=== PATIENT | female | born 1960 | race Caucasian/White ===

== ENCOUNTER → 2017-03-26 | Outpatient (CLI) | payer OTHER ==
[~2017-03-26] MED LIST: AMBIEN10 M1 PO; ANAPROX DS550 MG PO; ATIVAN1 MG PO; CIPRO500 MG PO; CIPROFLOXACIN500 MG PO; COMPAZINE10 MG PO; DULERA1 AR2 IH; LEVOFLOXACIN500 MG PO; LOMOTIL 0.025 M1 TA1 PO; MACROBID100 M1 PO; MOTRIN400 MG PO; MOTRIN800 MG PO; PHENERGAN25 M3 PO; PYRIDIUM100 MG PO; PYRIDIUM200 M1 PO; PYRIDIUM200 MG PO; SINGULAIR10 MG PO; SYNTHROID0.125 MG PO; TYLENOL W/CODEI1 TA2 PO; VALIUM10 MG; VIIBRYD40; ZOFRAN ODT4 MG SL; Zofran4 MG PO
== END | disposition home or self-care (01) ==
LOC: RAD 11:09
DX: J98.4 Other disorders of lung (principal)

== ENCOUNTER → 2017-04-04 | Outpatient (CLI) | payer OTHER | END | disposition home or self-care (01) | LOC: RAD 09:20 | DX: J18.9 Pneumonia, unspecified organism (principal); J45.909 Unspecified asthma, uncomplicated ==

== ENCOUNTER → 2017-06-04 | Outpatient (CLI) | payer OTHER | END | disposition home or self-care (01) | LOC: RAD 19:42 | DX: M25.562 Pain in left knee (principal); M25.561 Pain in right knee ==

== ENCOUNTER 2017-09-02 22:20 | Emergency (ER) | payer OTHER ==
[~2017-09-02] VITALS: Ht 170.1 cm; Wt 77.1 kg
[~2017-09-02 22:20] MED LIST changes: +SYNTHROID,LEV112 MCG PO; -SYNTHROID0.125 MG PO
[2017-09-02] MEDS ORDERED: VITAMIN D CAP 500 (22:42)
[2017-09-02 22:44] LABS: BILIRUBIN NEGATIVE (NEGATIVE); BLOOD NEGATIVE (NEGATIVE); CLARITY CLEAR (CLEAR); COLOR YELLOW (YELLOW); GLUCOSE NEGATIVE (NEGATIVE); KETONE NEGATIVE (NEGATIVE); LEUKO ESTERASE NEGATIVE (NEGATIVE); NITRITE NEGATIVE (NEGATIVE); PH 6.5 (5.0-9.0); SPECIFIC GRAVITY <= 1.005 (1.005-1.030); UROBILINOGEN 0.2 E.U./dl (0.2-1.0)
[2017-09-02 22:49] LABS: BACTERIA TRACE; EPITHELIAL CELLS 0-2; RBC 0-2 rbc/hpf (0-2); WBC 0-2 wbc/hpf (0-5)
[2017-09-02 23:57] LABS: BASO % 0.4 % (0.0-1.0); EOS # 0.4 10*3/uL (0.0-0.4); EOS % 4.4 % (1.0-4.0); HEMOGLOBIN 13.9 g/dl (12.0-16.0); LYMPH # 1.8 10*3/uL (1.3-4.4); LYMPH % 20.2 % (27.0-41.0); MEAN CELL VOLUME 89.9 fl (81.0-99.0); MEAN CORPUSCULAR HGB 29.8 pg (27.0-31.0); MEAN CORPUSCULAR HGB CONC 33.1 g/dl (33.0-37.0); MONO # 0.6 10*3/uL (0.1-1.0); MONO % 6.7 % (3.0-9.0); NEUT # 6.1 10*3/uL (2.3-7.9); PLATELET COUNT AUTOMATED 247 10*3/uL (130-400); RED BLOOD COUNT 4.67 10*6/uL (4.10-5.10); RED CELL DISTRI WIDTH 13.2 % (0-14.5)
[2017-09-03 00:15] LABS: ALBUMIN 3.7 gm/dl (3.1-4.5); ALKALINE PHOSPHATASE 83 U/L (45-117); BUN 15 mg/dl (7-24); CHLORIDE 110 mmol/L (98-107); CREATININE 0.92 mg/dL (0.55-1.02); LIPASE 169 U/L (73-393); POTASSIUM 4.1 mmol/L (3.5-5.1); SGOT/AST 20 IU/L (3-35); SGPT/ALT 26 U/L (12-78); SODIUM 145 mmol/L (136-145); TOTAL PROTEIN 6.8 gm/dL (6.4-8.2)
[2017-09-03] MEDS ORDERED: SEPTDS PO (00:19)
[2017-09-03] MEDS ORDERED: MACROBID100 M1 PO (00:22)
[2017-09-03 00:30] VITALS: BP 130/98
[2017-09-04] MEDS ORDERED: LEVOXYL112 MCG PO (19:16)
[2017-09-04] MEDS ORDERED: PROAIR HFA8.5 GM INH (20:34)
[2017-09-04] MEDS ORDERED: SYNTHROID,LEV112 MCG PO (21:00)
[2017-09-04] MEDS ORDERED: VITAMIN D-32000 UNI1 PO (21:01)
[2017-09-04] MEDS ORDERED: VITAMIN B1250 MCG PO (21:01)
[2017-09-04] MEDS ORDERED: PROBIOTIC250 MG PO (21:02)
== END 2017-09-03 00:37 | disposition home or self-care (01) ==
LOC: ED 22:20
PROVIDERS: Nurse Practitioner Family
DX: A08.4 Viral intestinal infection, unspecified (principal); R30.0 Dysuria; Z79.899 Other long term (current) drug therapy; Z90.710 Acquired absence of both cervix and uterus

== ENCOUNTER 2017-09-04 11:59 | Inpatient (IN) | payer OTHER ==
[~2017-09-04] VITALS: Ht 170.2 cm; Wt 80.7 kg
--- NOTE | ~2017-09-04 | WRIGHTHP ---
[place], [place] PATIENT HISTORY AND PHYSICAL EXAM NAME: YOGI MARTINEZ [facility] #: [id number] UNIT #: [id number] ROOM: 512 DOCTOR: CRISS ANDINO MD BIRTHDATE: [birth year] DOS: 09/04/2017 HISTORY OF PRESENT ILLNESS: The patient is a 56-year-old female with a past medical history of: 1. Hypothyroidism. 2. History of major depression, recurrent, mild. 3. History of bronchial asthma. 4. History of kidney stone. 5. History of urinary tract infections. 6. History of hysterectomy. The patient presented to [facility] for the second time with nausea, vomiting and diarrhea. The patient was found to be dehydrated and because she had presented for the second time, she was admitted and ruled out for urinary tract infection and then admitted for hydration. After admission, the patient was treated with IV Zofran and her vomiting and diarrhea have resolved and she is starting to tolerate diet. The patient is also being hydrated with IV fluids. The patient is insisting on going home later today because she is feeling much better. No complaints of any shortness of breath. No chest pain. No GI or urinary symptoms otherwise. REVIEW OF SYSTEMS: LUNGS: No increasing shortness of breath or wheezing. GASTROINTESTINAL: Nausea, vomiting and diarrhea at home. CARDIOVASCULAR: No palpitations or chest pains. FAMILY HISTORY: Noncontributory. SOCIAL HISTORY: The patient lives at home. Denies smoking cigarettes, alcohol and drug abuse. HOME MEDICATIONS: The patient takes Singulair, levothyroxine and Ambien. PHYSICAL EXAMINATION: GENERAL: Alert and oriented x 3, in no visible distress. HEENT AND NECK: Extraocular movements are intact. Sclerae are anicteric. Oral mucosa is moist and clean. No obvious facial weakness. Neck is supple without any lymphadenopathy. No thyromegaly. No JVD. No carotid arterial bruits. LUNGS: Clear to auscultation. No wheezing. No rhonchi. CARDIOVASCULAR SYSTEM: Heart rate is regular in rate and rhythm. S1 and S2 normally audible. No significant murmur or any other abnormal cardiac sounds. ABDOMEN: Soft, nontender. No obvious organomegaly. Bowel sounds are present. No obvious herniation. EXTREMITIES: Without significant cyanosis or edema. Warm to touch. CENTRAL NERVOUS SYSTEM: Alert and oriented x 3. Cranial nerves II-XII are intact. Speech is normal. The patient is able to move all extremities. Normal muscle strength. Deep tendon reflexes are equal on both sides. Plantars were downgoing. LABORATORY DATA: Urine cultures growing heavy gram-negative bacilli. Normal [place], [place] PATIENT HISTORY AND PHYSICAL EXAM NAME: YOGI MARTINEZ UNIT #: [id number] ROOM: [facility] DOCTOR: CRISS ANDINO MD BIRTHDATE: [birth year] serum electrolytes. IMPRESSION AND PLAN: 1. The patient's urine culture is growing heavy gram-negative bacilli and she has no known drug allergies, so I will treat her with Augmentin. 2. Nausea, vomiting, diarrhea, apparently viral gastroenteritis and also related to urinary tract infection has resolved and the patient being hydrated with intravenous fluids. If the patient continues to do well, she can be discharged in the evening because she is insisting to go home and she is to follow up with Dr. Yamil Bustos, her PCP this week. 3. Hypothyroidism, for which her thyroid supplements have been continued. 4. Chronic primary insomnia, treated and controlled with Ambien as needed. 5. History of bronchial asthma, for which she takes Singulair, which has been continued. CRISS ANDINO MD CM:HISPHYS:PATIENT HISTORY AND PHYSICAL EXAMINATION [id number] CRISS ANDINO MD 09/05/17 1213 interface
[~2017-09-04 11:59] MED LIST changes: +SEPTDS PO; +VITAMIN D CAP 500
[2017-09-04 12:09] VITALS: BP 124/68; BP 124/8
[2017-09-04 12:42] LABS: BASO % 0.2 % (0.0-1.0); EOS # 0.2 10*3/uL (0.0-0.4); EOS % 1.6 % (1.0-4.0); HEMATOCRIT 47.6 % (37.0-47.0); HEMOGLOBIN 16.1 g/dl (12.0-16.0); LYMPH # 0.5 10*3/uL (1.3-4.4); LYMPH % 4.2 % (27.0-41.0); MEAN CELL VOLUME 87.8 fl (81.0-99.0); MEAN CORPUSCULAR HGB 29.7 pg (27.0-31.0); MEAN CORPUSCULAR HGB CONC 33.8 g/dl (33.0-37.0); MEAN PLATELET VOLUME 8.9 fl (9.6-12.3); MONO # 0.5 10*3/uL (0.1-1.0); MONO % 4.2 % (3.0-9.0); NEUT # 9.7 10*3/uL (2.3-7.9); NEUT % 89.4 % (47.0-73.0); PLATELET COUNT AUTOMATED 268 10*3/uL (130-400); RED BLOOD COUNT 5.42 10*6/uL (4.10-5.10); RED CELL DISTRI WIDTH 13.1 % (0-14.5); WHITE BLOOD COUNT 10.8 10*3/uL (4.8-10.8)
[2017-09-04 12:46] LABS: BILIRUBIN 1+ (NEGATIVE); BLOOD 1+ (NEGATIVE); CLARITY SL CLOUDY (CLEAR); COLOR YELLOW (YELLOW); GLUCOSE NEGATIVE (NEGATIVE); KETONE 3+ (NEGATIVE); LEUKO ESTERASE NEGATIVE (NEGATIVE); NITRITE NEGATIVE (NEGATIVE); SPECIFIC GRAVITY 1.015 (1.005-1.030); UROBILINOGEN 0.2 E.U./dl (0.2-1.0)
--- NOTE | 2017-09-04 12:53 | NUR ---
PT POSITIONED FOR COMFORT SAFETY PRECAUTIONS INTACT AND CALL LIGHT WITHIN REACH.
[2017-09-04 12:55] LABS: BACTERIA 1+; MUCOUS 2+; WBC 0-2 wbc/hpf (0-5)
[2017-09-04 13:02] LABS: ALBUMIN 4.2 gm/dl (3.1-4.5); ALKALINE PHOSPHATASE 99 U/L (45-117); BUN 19 mg/dl (7-24); CHLORIDE 105 mmol/L (98-107); CREATININE 0.88 mg/dL (0.55-1.02); LIPASE 119 U/L (73-393); POTASSIUM 4.1 mmol/L (3.5-5.1); SGOT/AST 20 IU/L (3-35); SGPT/ALT 25 U/L (12-78); SODIUM 140 mmol/L (136-145); TOTAL PROTEIN 7.9 gm/dL (6.4-8.2)
--- NOTE | 2017-09-04 13:32 | NUR ---
NO ADDITIONAL EMESIS/WRETCHING NOTED SINCE MEDICATION ADMINISTRATION BUT NAUSEA REMAINS PER PT,DR ZALDIVAR NOTIFIED.
--- NOTE | 2017-09-04 13:55 | NUR ---
MEDICATION ADMINISTRATION PER DELLA WILLINGHAM INFORMATION BROKER-RN
--- NOTE | 2017-09-04 14:46 | NUR ---
PT AMBULATING W/O DIFFICULTY TO/FROM EXAM ROOM TO RESTROOM WITH MILD NAUSEA REMAINING, PT DENIES FLUIDS @ THIS TIME FOR PO CHALLENGE UNTIL "FEELING NOT SO WOOZY", PT POSITIONED FOR COMFORT AND NO ACUTE DISTRESS NOTED.
--- NOTE | 2017-09-04 14:58 | NUR ---
PT WITH CONTINUED NAUSEA AND WRETCHING NOTED @ THIS TIME,PT PROVIDED EMESIS BAG AND POSITIONED FOR COMFORT.
--- NOTE | 2017-09-04 15:06 | NUR ---
DR ZALDIVAR NOTIFIED OF PT'S CONTINUED COMPLAINT.
--- NOTE | 2017-09-04 15:12 | NUR ---
PT WITH EMESIS OF YELLOW FLUIDS WHILE IN RESTROOM.
[2017-09-04 15:18] VITALS: BP 132/69
--- NOTE | 2017-09-04 16:33 | NUR ---
PT STATING NAUSEA RESOLVED BUT H/A REMAINS @ A 5 ON 1-10 SCALE LOCATED TO OCCIPITAL HEAD/NAPE OF NECK,FAMILY @ BEDSIDE AND SAFETY PRECAUTIONS INTACT.
[2017-09-04 16:47] VITALS: BP 122/65
--- NOTE | 2017-09-04 17:19 | NUR ---
A 56, admitted to 5E, under the services of Dr. THU WALKER,CRISS Morales with a diagnosis of INTRACTABLE NAUSEA AND VOMITING, DEHYDRATION. Chief complaint is NAUSEA/VOMITING. Patient arrived via CART from ER. Monitor applied. Initial assessment completed. Vital signs taken and recorded. DR. THU WALKER,CRISS Morales notified of admission to the unit. Orders received. See assessment for past medical history, medications and allergies. Patient and/or family oriented to unit. [facility] visitation policy reviewed. Clothing/patient valuable form completed. KAY ALVAREZ
--- NOTE | 2017-09-04 18:44 | NUR ---
SPOKE WITH DR. ANDINO REGARDING ADMISSION ORDERS. NEW ORDERS RECIEVED.
[2017-09-04] MEDS ORDERED: LEVOXYL112 MCG PO (19:16)
[2017-09-04 20:00] VITALS: BP 120/67
[2017-09-04] MEDS ORDERED: PROAIR HFA8.5 GM INH (20:34)
--- NOTE | 2017-09-04 20:57 | NUR ---
IV ZOFRAN ADMINISTERED SLOWLY PER PRN ORDER FOR C/O NAUSEA. WILL MONITOR EFFECTIVENESS. CALL LIGHT LEFT IN REACH.
[2017-09-04] MEDS ORDERED: SYNTHROID,LEV112 MCG PO (21:00)
[2017-09-04] MEDS ORDERED: VITAMIN B1250 MCG PO (21:01)
[2017-09-04] MEDS ORDERED: VITAMIN D-32000 UNI1 PO (21:01)
[2017-09-04] MEDS ORDERED: PROBIOTIC250 MG PO (21:02)
--- NOTE | 2017-09-04 21:06 | NUR ---
MED REC UP TO DATE PER [facility] AND PATIENT RECALL. SPOKE TO ABOUT PATIENT'S HOME MEDICATIONS AND REQUESTS FOR ANTI-ANXIETY MEDICATION. STATES HE WILL PUT IN ORDERS.
--- NOTE | 2017-09-04 21:53 | NUR ---
PO DEMETRIS ADMINISTERED AT THIS TIME PER ORDER. WILL MONITOR EFFECTIVENESS. CALL LIGHT LEFT WITHIN REACH.
[2017-09-05] VITALS: BP 111/56
--- NOTE | 2017-09-05 00:04 | NUR ---
PATIENT ASLEEP IN BED AT THIS TIME. EARLIER MEDICATION APPEARS EFFECTIVE. WILL CONTINUE TO MONITOR. CALL LIGHT LEFT IN REACH.
[2017-09-05 06:18] LABS: BASO % 0.6 % (0.0-1.0); EOS # 0.1 10*3/uL (0.0-0.4); EOS % 1.6 % (1.0-4.0); LYMPH # 0.6 10*3/uL (1.3-4.4); LYMPH % 11.5 % (27.0-41.0); MEAN CELL VOLUME 89.5 fl (81.0-99.0); MEAN CORPUSCULAR HGB 29.8 pg (27.0-31.0); MEAN CORPUSCULAR HGB CONC 33.3 g/dl (33.0-37.0); MEAN PLATELET VOLUME 9.3 fl (9.6-12.3); MONO # 0.5 10*3/uL (0.1-1.0); MONO % 9.7 % (3.0-9.0); NEUT # 3.9 10*3/uL (2.3-7.9); NEUT % 76.2 % (47.0-73.0); PLATELET COUNT AUTOMATED 207 10*3/uL (130-400); RED BLOOD COUNT 4.57 10*6/uL (4.10-5.10); RED CELL DISTRI WIDTH 13.1 % (0-14.5); WHITE BLOOD COUNT 5.1 10*3/uL (4.8-10.8)
[2017-09-05 06:40] LABS: HEMATOCRIT 40.9 % (37.0-47.0); HEMOGLOBIN 13.6 g/dl (12.0-16.0)
[2017-09-05 06:42] LABS: CHLORIDE 107 mmol/L (98-107); POTASSIUM 3.7 mmol/L (3.5-5.1); SODIUM 141 mmol/L (136-145)
[2017-09-05 06:49] LABS: BUN 19 mg/dl (7-24); CREATININE 0.91 mg/dL (0.55-1.02)
[2017-09-05 08:00] VITALS: BP 117/61
--- NOTE | 2017-09-05 09:00 | NUR ---
Telecasting Technician in to talk to patient. Patient states lives at home with daughter. There are few steps in the home. Physician: jonathan Pharmacy: [facility] health services: none Patient's level of ADLs: INDEPENDENT Patient has working utilities: all working DME: none Follow-up physician's appointment after d/c: will be made by hospitalist nurse director upon discharge Does patient want to access PORTAL?: no Discharge plan discussed with patient, patient lives at home with daughter, she is independent in adls and ambulation, drives, works, patient states she will be going back home when able and denies any home needs. PHILL PELAYO
[2017-09-05] MEDS ORDERED: AUGMENTIN 875-875 MG PO (11:05)
--- NOTE | 2017-09-05 12:56 | NUR ---
Discharge instructions reviewed with patient/family. Patient receptive and verbalizes understanding. Follow-up care arranged. Written instructions given to patient/family. DELLA SOTO
== END 2017-09-05 12:56 | disposition home or self-care (01) | DRG 641 ==
LOC: ED 11:59 → EDHOLD 15:37 → 5E 15:37
PROVIDERS: Emergency Medicine; ADMIT Internal Medicine
DX: E86.0 Dehydration (principal); F51.04 Psychophysiologic insomnia; F33.0 Major depressive disorder, recurrent, mild; E03.9 Hypothyroidism, unspecified; J45.909 Unspecified asthma, uncomplicated; Z79.899 Other long term (current) drug therapy; Z90.49 Acquired absence of other specified parts of digestive tract

== ENCOUNTER 2019-11-07 11:23 | Emergency (ER) | payer OTHER ==
[~2019-11-07] VITALS: Ht 168.9 cm; Wt 83.9 kg
[~2019-11-07 11:23] MED LIST changes: +AUGMENTIN 875-875 MG PO; +LEVOXYL112 MCG PO; +PROAIR HFA8.5 GM INH; +PROBIOTIC250 MG PO; +VITAMIN B1250 MCG PO; +VITAMIN D-32000 UNI1 PO
[2019-11-07 12:37] LABS: BILIRUBIN NEGATIVE (NEGATIVE); CLARITY SL CLOUDY (CLEAR); COLOR YELLOW (YELLOW); GLUCOSE NEGATIVE (NEGATIVE); KETONE 3+ (NEGATIVE)
[2019-11-07 12:38] LABS: BLOOD 1+ (NEGATIVE); LEUKO ESTERASE NEGATIVE (NEGATIVE); NITRITE NEGATIVE (NEGATIVE); UROBILINOGEN 0.2 E.U./dl (0.2-1.0)
[2019-11-07 12:49] LABS: BACTERIA 2+; MUCOUS 2+; WBC 0-2 wbc/hpf (0-5)
[2019-11-07 13:21] LABS: BASO % 0.4 % (0.0-1.0); EOS % 0.1 % (1.0-4.0); HEMATOCRIT 48.5 % (37.0-47.0); HEMOGLOBIN 15.6 g/dl (12.0-16.0); LYMPH # 1.4 10*3/uL (1.3-4.4); LYMPH % 20.3 % (27.0-41.0); MEAN CELL VOLUME 88.3 fl (81.0-99.0); MEAN CORPUSCULAR HGB 28.4 pg (27.0-31.0); MEAN CORPUSCULAR HGB CONC 32.2 g/dl (33.0-37.0); MEAN PLATELET VOLUME 9.5 fl (9.6-12.3); MONO # 0.4 10*3/uL (0.1-1.0); MONO % 5.1 % (3.0-9.0); NEUT # 5.2 10*3/uL (2.3-7.9); NEUT % 73.8 % (47.0-73.0); PLATELET COUNT AUTOMATED 381 10*3/uL (130-400); RED BLOOD COUNT 5.49 10*6/uL (4.10-5.10); RED CELL DISTRI WIDTH 12.5 % (0-14.5); WHITE BLOOD COUNT 7.1 10*3/uL (4.8-10.8)
[2019-11-07 13:38] LABS: ALBUMIN 4.3 gm/dl (3.1-4.5); ALKALINE PHOSPHATASE 101 U/L (45-117); BUN 14 mg/dl (7-24); CHLORIDE 108 mmol/L (98-107); CREATININE 1.04 mg/dL (0.55-1.02); POTASSIUM 4.2 mmol/L (3.5-5.1); SGOT/AST 22 IU/L (3-35); SGPT/ALT 38 U/L (12-78); SODIUM 142 mmol/L (136-145); TOTAL PROTEIN 7.7 gm/dL (6.4-8.2)
[2019-11-07 13:40] LABS: LIPASE 115 U/L (73-393)
[2019-11-07 13:41] VITALS: BP 125/73
[2019-11-07] MEDS ORDERED: ATIVAN1 MG PO (16:52)
== END 2019-11-07 17:10 ==
LOC: ED 11:23
PROVIDERS: Emergency Medicine
DX: R10.9 Unspecified abdominal pain (principal); F41.9 Anxiety disorder, unspecified; R11.10 Vomiting, unspecified; R19.7 Diarrhea, unspecified; J45.909 Unspecified asthma, uncomplicated; F32.9 Major depressive disorder, single episode, unspecified; Z79.2 Long term (current) use of antibiotics; Z79.899 Other long term (current) drug therapy; Z90.710 Acquired absence of both cervix and uterus